=== PATIENT | male | born 1985 | race African-American/Black ===

== ENCOUNTER 2024-06-02 22:55 | Emergency (ER) | payer SELFPAY ==
[~2024-06-02] VITALS: Ht 165.1 cm; Wt 90.2 kg
[2024-06-02 23:32] LABS: BASO % 0.9 % (0.0-1.0); EOS # 0.3 10^3/uL (0.0-0.5); EOS % 6.1 % (0.0-3.0); HEMATOCRIT 41.3 % (42.0-52.0); HEMOGLOBIN 14.1 g/dl (13.5-17.5); LYMPH # 0.8 10^3/uL (1.5-5.0); LYMPH % 19.3 % (24.0-44.0); MEAN CORPUSCULAR HEMOGLOBIN 31.4 pg (27.0-33.0); MEAN CORPUSCULAR HGB CONC 34.1 g/dl (32.0-36.5); MONO # 0.6 10^3/uL (0.0-0.8); MONO % 14.2 % (2.0-8.0); NEUTROPHILS # 2.5 10^3/uL (1.5-8.5); NEUTROPHILS % 59.3 % (36.0-66.0); PLATELET COUNT, AUTOMATED 187 10^3/uL (150-450); RED BLOOD COUNT 4.49 10^6/uL (4.30-6.10); WHITE BLOOD COUNT 4.3 10^3/uL (4.0-10.0)
[2024-06-02 23:57] LABS: LIPASE 55 U/L (12-53)
[2024-06-02 23:59] LABS: ALBUMIN 3.5 G/DL (3.2-5.2); ALKALINE PHOSPHATASE 71 U/L (40-129); ALT/SGPT 28 U/L (7.0-40); AST/SGOT 28 U/L (<34); BILIRUBIN,DIRECT 0.2 MG/DL (<0.4); BILIRUBIN,TOTAL 0.5 MG/DL (0.3-1.2); BLOOD UREA NITROGEN 12 MG/DL (9-23); CALCIUM LEVEL 8.9 MG/DL (8.5-10.1); CARBON DIOXIDE LEVEL 28 MMOL/L (20-31); CHLORIDE LEVEL 106 MMOL/L (98-107); CK-MB VALUE MASS 1.3 NG/ML (<3.6); CPK CREATINE PHOSPHOKINASE 280 U/L (46-171); CREATININE FOR GFR 0.88 MG/DL (0.70-1.30); GLOMERULAR FILTRATION RATE > 60.0 (>60); GLUCOSE, FASTING 118 MG/DL (60-100); MB/CK RELATIVE INDEX 0.46 (< OR =4); POTASSIUM SERUM 3.7 MMOL/L (3.5-5.1); SODIUM LEVEL 142 MMOL/L (136-145); TOTAL PROTEIN 6.7 G/DL (5.7-8.2)
[2024-06-03 02:36] VITALS: BP 129/65; TEMP 97.5; O2SAT 95
[2024-06-03 03:10] LABS: CK-MB VALUE MASS 1.1 NG/ML (<3.6); MB/CK RELATIVE INDEX 0.41 (< OR =4)
== END 2024-06-03 06:26 | disposition left against medical advice (07) ==
LOC: M ED 22:55 → EDBD 22:55 → M ED 06-03 06:26
DX: Z53.21 Procedure and treatment not carried out due to patient leaving prior to being seen by health care provider (principal)

== ENCOUNTER 2024-06-03 22:59 | Emergency (ER) | payer MEDICAID ==
[~2024-06-03] VITALS: Ht 165.1 cm; Wt 79.5 kg
[2024-06-04 04:59] VITALS: BP 150/70; TEMP 97.5; O2SAT 97
[2024-06-04] MEDS: ALBUTEROL SULFATE 2.5MG/0.5ML INH NEB SOLN NEB ONE (07:05)
== END 2024-06-04 07:49 | disposition left against medical advice (07) ==
LOC: M ED 22:59
DX: R07.9 Chest pain, unspecified (principal); F12.10 Cannabis abuse, uncomplicated; R06.02 Shortness of breath

== ENCOUNTER 2024-06-04 23:29 | Emergency (ER) | payer OTHER, MEDICAID ==
[~2024-06-04] VITALS: Ht 165.1 cm; Wt 79.4 kg
[2024-06-04 23:31] VITALS: BP 181/84; TEMP 98.8; O2SAT 100
== END 2024-06-05 06:46 | disposition left against medical advice (07) ==
LOC: M ED 23:29
DX: Z53.21 Procedure and treatment not carried out due to patient leaving prior to being seen by health care provider (principal)